=== PATIENT | female | born 1960 | race Caucasian/White ===

== ENCOUNTER 2021-12-22 13:14 | Outpatient (CLI) | payer BC, SELFPAY ==
--- NOTE | ~2021-12-22 | MR_ITS ---
EXAMINATION: MR shoulder RT wo con DATE: 12/22/2021 13:53 INDICATION: Chronic right shoulder pain TECHNIQUE: Magnetic resonance imaging (MRI) of the right shoulder was performed without intravenous c ontrast. Sequences included axial PD-weighted FS FSE, coronal oblique PD-weighted FS FSE, coronal obl ique T2-weighted FS FSE, sagittal PD-weighted FS FSE, and sagittal T1-weighted SE. COMPARISON: None. FINDINGS: Coracoacromial arch: The acromion undersurface is curved in morphology (type II). The coracoacromial ligament is normal. M ild acromioclavicular osteoarthritis. Rotator cuff: The supraspinatus, infraspinatus and teres minor tendons are normal. Mild subscapularis tendinopathy without discrete tear. Normal rotator cuff muscle bulk and signal. Biceps tendon, glenoid labrum and glenohumeral cartilage: Long head of the biceps tendon is normal. Amorphous increased signal and thickening of the anteroinfe rior glenoid labrum consistent with degeneration without a discrete well-defined linear tear. The pos terior labrum is small with rounded free edge likely representing additional degeneration. Mild nonun iform partial-thickness cartilage loss with smooth chondral surface and without degenerative subchond ral changes along portions of the glenoid and humeral head. Fluid: Small glenohumeral joint effusion with proportional extension of a small amount of fluid along the lo ng head biceps tendon sheath. No loose osteochondral bodies. No abnormal fluid signal in the subacrom ial/subdeltoid bursa to suggest bursitis. Bones/other: Normal marrow signal with no edema, fracture or abnormal marrow replacing process. There is thickenin g of the middle and anterior inferior glenohumeral ligament. There is also thickening of the glenohum eral joint capsule at the axillary recess along with thickened intermediate signal intensity soft tis racquel replacing the normal T1 hyperintense fat signal at the rotator cuff interval, both findings which can be seen in the setting of adhesive capsulitis. IMPRESSION: 1. Mild glenohumeral osteoarthritis with degeneration without clearly defined tear at the somewhat th ickened anteroinferior glenoid labrum and along the free edge of the small posterior labrum. 2. Mild subscapularis tendinopathy without discrete tear. 3. Thickening of the capsule at the axillary recess and of the tissues at the rotator cuff interval. Findings which can be seen in the setting of adhesive capsulitis which is a clinical diagnosis. 4. Small glenohumeral joint effusion. Reviewed, dictated and finalized at location B. IMPRESSION: 1. Mild glenohumeral osteoarthritis with degeneration without clearly defined t ear at the somewhat thickened anteroinferior glenoid labrum and along the free edge of the small posterior labrum. 2. Mild subscapularis tendinopathy without discrete tear. 3. Thickening of the capsule at the axillary recess and of the tissues at the r otator cuff interval. Findings which can be seen in the setting of adhesive cap sulitis which is a clinical diagnosis. 4. Small glenohumeral joint effusion.
== END 2021-12-22 13:15 | disposition home or self-care (01) ==
PROVIDERS: PCP Family Medicine; Visit Provider Orthopaedic Surgery
DX: M25.511 Pain in right shoulder (principal); G89.29 Other chronic pain; M19.011 Primary osteoarthritis, right shoulder; M75.81 Other shoulder lesions, right shoulder; M25.411 Effusion, right shoulder
CPT/HCPCS: 73221